=== PATIENT | female | born 1940 | race Caucasian/White ===

== ENCOUNTER → 2018-12-10 16:24 | Outpatient (CLI) | payer MEDICARE, OTHER, SELFPAY ==
[2018-12-10 11:35] VITALS: BMI 29.2
== END ==
PROVIDERS: Referring Provider Nurse Practitioner Women's Health; Visit Provider Nurse Practitioner Women's Health
DX: N89.8 Other specified noninflammatory disorders of vagina (principal)
CPT/HCPCS: 87070; 87205

== ENCOUNTER 2021-11-17 05:57 | Emergency (ER) | payer MEDICARE, OTHER, SELFPAY ==
[2021-11-17 05:58] VITALS: BP 154/82; PULSE 75; RESP 18; TEMP 36.8; O2SAT 96; BMI 27.6
[2021-11-17 06:09] VITALS: BP 154/82; PULSE 75; RESP 18; TEMP 36.8; O2SAT 96
--- NOTE | 2021-11-17 06:53 | EDS_ITS ---
HPI History of Present Illness Chief Complaint: Shortness of Breath Informant: patient and family Narrative Narrative: 81-year-old female states that she has been sick for 2 weeks. She states that she went to [facility] and was prescribed medications but s he is allergic to all medications. She states that the she cannot take any medications other than ivermectin and natural medicines. She is wondering if I can refer her to a soil scientist. She states she needs something to help get the mucus out of her lungs. She states that her fevers have gotten better. She states that she does not have Covid. She states that she is very weak and is dizzy when she tries to walk at [place] they tried to give her albuterol which sends her into A. fib. While she is not had Zithromax or prednisone before she did not take them because she read the list of reasons why you should not take them and she has them all. PFSH [facility] Medical History Arthritis Atrial fibrillation Breast cancer Celiac disease Congestive heart failure COPD (chronic obstructive pulmonary disease) Uterine cancer Home Medications cholecalciferol (vit D3) 1,000 unit-vitamin K2 (MK4) 100 mcg tablet 1 tab PO DAILY 12/10/18 [History Last Taken Unknown] coenzyme Q10 75 mg capsule 75 mg PO DAILY 12/10/18 [History Last Taken Unknown] estradiol See Rx Instructions VAGINAL .COMPLEX #42.5 g 12/10/18 [Rx Last Taken Unknown] hawthorn 250 mg capsule mg PO cap 12/10/18 [History Last Taken Unknown] krill oil 500 mg capsule mg PO cap 12/10/18 [History Last Taken Unknown] multivitamin 1 tab PO DAILY 12/10/18 [History Last Taken Unknown] Allergy/AdvReac Type Severity Reaction Status Date / Time Penicillins Allergy Mild hives Verified 11/17/21 06:02 procainamide AdvReac Mild blood Verified 11/17/21 06:02 pressure increased antibiotics AdvReac Upset Uncoded 11/17/21 06:02 Stomach OTC medications AdvReac Upset Uncoded 11/17/21 06:02 Stomach steroids AdvReac Upset Uncoded 11/17/21 06:02 Stomach Family History Mother Breast cancer Uncle Lung cancer Sister Alzheimer disease Father Stomach cancer Other Throat cancer Surgical History Complication of breast implant H/O vagotomy heart catheterization History of carpal tunnel release History of lumpectomy of both breasts Pacemaker S/P hysterectomy skin cancer removed Status post right knee replacement Social History Smoking Status: Former smoker alcohol intake: current alcohol intake frequency: holidays/special occasions only substance use type: former substance user, prescription drug and other details: history of marijuana use (1 year ago) caffeine: No what type of physical activity do you participate in: walking seatbelt use: always do you feel safe at home: Yes additional social history: -Ace ROS ROS ED ROS Narrative Generalized weakness Constitutional Constitutional ED: Reports chills and fever(s); Denies weight loss Eyes Eyes: Denies change in vision or diplopia ENT ENT ED: Reports rhinorrhea; Denies ear pain or sore throat Cardiovascular Cardiovascular: Denies chest pain, orthopnea, palpitations or racing heartbeat Respiratory/Chest Respiratory/Chest: Reports cough, dyspnea, dyspnea on exertion and sputum; Denies orthopnea Gastrointestinal Gastrointestinal: Denies abdominal pain, diarrhea, nausea or vomiting Genitourinary Genitourinary ED: Denies dysuria, hematuria or urinary frequency Musculoskeletal Musculoskeletal: Denies arthralgias or myalgias Integumentary Denies abscess or rash Neurologic Neurologic: Reports headache(s); Denies weakness Psychiatric Psychiatric: Denies anxiety, depression, suicidal ideation or suicidal thoughts Endocrine Endocrinology: Denies polydipsia, polyphagia or polyuria Allergic/Immunologic Allergic/Immunologic ED: Denies mouth swelling, tongue swelling or urticaria EXAM Physical Exam Const Vital Signs: 11/17/21 05:58 11/17/21 06:09 Temperature 98.2 F 98.2 F Temperature Source Temporal Temporal Pulse Rate 75 75 Respiratory Rate 18 18 Blood Pressure 154/82 H 154/82 H Blood Pressure Mean 106 106 Pulse Ox 96 96 Oxygen Delivery Method Room Air Room Air Positive well nourished, well developed and obese General Appearance ED: well developed Nutritional Appearance: obese HEENT Reports normocephalic, head/scalp atraumatic, TM's clear and moist mucous membranes Negative for trauma Tympanic Membrane ED: Yes TM's clear Eyes PERRL and EOMs intact bilaterally Neck no lymphadenopathy, supple and no JVD Resp normal respiratory effort Resp Narrative: There are rhonchi that improved with cough and expiratory wheezes that improved with cough Cardio regular rate, regular rhythm and no murmurs GI normal to inspection, nondistended, normoactive bowel sounds and non-tender Palpation: soft Back/Spine no CVA tenderness and normal ROM Extremity normal to inspection General Extremety ED: Negative for edema General Extremity: Negative for edema Neuro oriented x3 and CN's II-XII intact bilaterally Sensorium / Orientation: alert Motor Exam: strength 5/5 throughout Psych mental status grossly normal Mood & Affect: Negative for depressed or tearful Skin no rashes or lesions noted and no wounds MDM MDM MDM Narrative Medical decision making narrative: I explained to the patient that as a [facility] physician I generally use medications to help patients feel better. We can try some [employer] incentive spirometer. Strongly recommend that she at least give guaifenesin to try. She does not want antibiotics or steroids though I do think these would have the potential to help her. Discharge Plan Triage Chief Complaint: Shortness of Breath ED Provider: Ferny Louise Dx/Rx/DC Orders Clinical Impression: Acute bronchitis with bronchospasm Instructions: ED Bronchitis with Wheezing (Adult) Prescriptions: No Action multivitamin tablet 1 tab PO DAILY RF: 0 vitamin D3-vitamin K2 (MK4) 1,000-100 unit-mcg tablet 1 tab PO DAILY RF: 0 krill oil 500 mg capsule PO RF: 0 Ultra CoQ10 75 mg capsule 75 mg PO DAILY RF: 0 hawthorn 250 mg capsule 250 mg capsule PO RF: 0 estradiol 0.01 % (0.1 mg/gram) cream See Rx Instructions VAGINAL .COMPLEX Qty: 42.5 RF: 1 Primary Care Provider: Care Physician,No Primary Referrals: Care Physician,No Primary [Primary Care Provider] - Activity Restrictions/Additional Instructions: You should consider establishing primary care. Unfortunately the doctors practice [facility] at this [facility]. Therefore we generally will use medications. I would recommend some guaifenesin. Disposition Disposition: Home, Self Care
--- NOTE | 2021-11-18 10:50 | CASEMGMT ---
CARMELA PATTERSON ED follow-up: Date of ER visit: Presenting ER complaint: shortness of breath CARMELA PATTERSON placed call to patient's telephone number listed on demographics- patient answered. Patient states feeling much better today and breathing much improved. Patient reports using provided incentive spirometer 4-5 times a day as instructed. Patient reports continued poor appetite with decreased solid food intake but states she is drinking plenty of fluids. Patient does not have PCP. CARMELA PATTERSON offered [facility] Healthcare Provider Directory to patient and patient requests directory be sent per e-mail. Scanned copy of [facility] Healthcare Directory sent to patient's provided e-mail address: [email or web address]. Patient encouraged to review directory and contact provider of choice to establish care. Patient voices understanding. Denies further questions or concerns and expressed appreciation for follow-up call. CARMELA Lane CM
== END 2021-11-17 07:23 | disposition home or self-care (01) ==
PROVIDERS: Emergency Provider Emergency Medicine; Visit Provider Emergency Medicine
DX: J20.9 Acute bronchitis, unspecified (principal); J44.0 Chronic obstructive pulmonary disease with (acute) lower respiratory infection; I50.9 Heart failure, unspecified; I48.91 Unspecified atrial fibrillation; E66.9 Obesity, unspecified; Z87.891 Personal history of nicotine dependence; Z85.3 Personal history of malignant neoplasm of breast
CPT/HCPCS: 94667; 99282